=== PATIENT | female | born 1960 | race Two or more races ===

== ENCOUNTER 2019-12-03 17:56 | Emergency (ER) | payer OTHER ==
[~2019-12-03] VITALS: Ht 162.6 cm; Wt 61.7 kg
[2019-12-03] MEDS ORDERED: SYNTHROID75 MCG PO (18:13)
== END 2019-12-03 21:20 | disposition home or self-care (01) ==
LOC: ER 17:56
DX: M79.18 Myalgia, other site (principal); R07.89 Other chest pain